=== PATIENT | female | born 1985 | race Caucasian/White ===

== ENCOUNTER 2017-02-09 14:20 | Inpatient (IN) | payer OTHER ==
[~2017-02-09 14:20] MED LIST: BIRTH CONTROL; XANAX0.5 M1 PO
[2017-02-09] MEDS ORDERED: XANAX0.25 M1 PO (15:51)
[2017-02-09] MEDS ORDERED: CLARITIN10 M6 PO (15:52)
[2017-02-09] MEDS ORDERED: PRENATAL-U CAPS1 CAP PO (15:52)
[2017-02-09 16:39] LABS: BASO % 0.1 % (0-2); EOS % 0.6 % (0-7); EOSINOPHIL ABSOLUTE COUNT 0.1 tho/cmm (0.0-0.7); HCT-HEMATOCRIT 38.4 % (34.0-49.0); HGB-HEMOGLOBIN 13.7 gm/dl (12.0-15.5); IMMATURE GRANULOCYTES ABSOLUTE 0.08 tho/cmm (0-0.03); IMMATURE GRANULOCYTES PERCENT 0.5 % (0-0.3); LYMPH % 15.6 % (20-45); LYMPH ABSOLUTE COUNT 2.5 tho/cmm (0.8-4.5); MCH (MEAN CORPUSCULAR HGB) 33.3 pg (28.0-32.0); MCHC MEAN CORPUSCULAR HGB CONC 35.7 % (32.0-36.0); MCV (MEAN CELL VOLUME) 93.4 fl (82.0-96.0); MEAN PLATELET VOLUME 9.6 cmc (9.4-12.4); MONO % 9.5 % (0-12); MONOCYTE ABSOLUTE COUNT 1.5 tho/cmm (0.0-1.2); NEUTROPHIL ABSOLUTE COUNT 11.7 tho/cmm (1.6-8.0); NEUTROPHIL-AUTOMATED 11.7 tho/cmm (1.6-8.0); NEUTROPHILS % 73.7 % (40-80); PLATELET COUNT 262 tho/cmm (150-450); RED BLOOD COUNT 4.11 mil/cmm (4.00-5.20); RED CELL DISTRIBUTION WIDTH 12.6 % (12.4-16.4); WHITE BLOOD COUNT 15.9 tho/cmm (4.0-10.0)
[2017-02-10 08:31] LABS: BASO % 0.1 % (0-2); EOS % 1.6 % (0-7); EOSINOPHIL ABSOLUTE COUNT 0.2 tho/cmm (0.0-0.7); HCT-HEMATOCRIT 36.9 % (34.0-49.0); HGB-HEMOGLOBIN 12.7 gm/dl (12.0-15.5); IMMATURE GRANULOCYTES ABSOLUTE 0.09 tho/cmm (0-0.03); IMMATURE GRANULOCYTES PERCENT 0.6 % (0-0.3); LYMPH % 14.2 % (20-45); LYMPH ABSOLUTE COUNT 2.2 tho/cmm (0.8-4.5); MCH (MEAN CORPUSCULAR HGB) 32.4 pg (28.0-32.0); MCHC MEAN CORPUSCULAR HGB CONC 34.4 % (32.0-36.0); MCV (MEAN CELL VOLUME) 94.1 fl (82.0-96.0); MEAN PLATELET VOLUME 9.5 cmc (9.4-12.4); MONO % 9.3 % (0-12); MONOCYTE ABSOLUTE COUNT 1.4 tho/cmm (0.0-1.2); NEUTROPHIL ABSOLUTE COUNT 11.3 tho/cmm (1.6-8.0); NEUTROPHIL-AUTOMATED 11.3 tho/cmm (1.6-8.0); NEUTROPHILS % 74.2 % (40-80); PLATELET COUNT 248 tho/cmm (150-450); RED BLOOD COUNT 3.92 mil/cmm (4.00-5.20); RED CELL DISTRIBUTION WIDTH 12.8 % (12.4-16.4); WHITE BLOOD COUNT 15.2 tho/cmm (4.0-10.0)
[2017-02-11] MEDS ORDERED: IBUPROFEN800 M1 PO (07:53)
[2017-02-11] MEDS ORDERED: NORCO 5-325 TA1 EACH PO (07:54)
== END 2017-02-11 17:58 | DRG 775 ==
LOC: LDR 14:20 → OBGD 22:42
PROVIDERS: Obstetrics & Gynecology; ADMIT Obstetrics & Gynecology
PROC: 10907ZC Drainage of Amniotic Fluid, Therapeutic from Products of Conception, Via Natural or Artificial Opening (ICD-10-PCS; principal; 2017-02-09)
PROC: 10E0XZZ Delivery of Products of Conception, External Approach (ICD-10-PCS; principal; 2017-02-09)
PROC: 0KQM0ZZ Repair Perineum Muscle, Open Approach (ICD-10-PCS; principal; 2017-02-09)
DX: O70.1 Second degree perineal laceration during delivery (principal); Z37.0 Single live birth; Z3A.37 37 weeks gestation of pregnancy
CPT/HCPCS: J2590